=== PATIENT | female | born 1945 | race Caucasian/White ===

== ENCOUNTER 2022-01-09 10:24 | Day surgery (SDC) | payer MEDICARE, OTHER, SELFPAY ==
--- NOTE | 2022-01-08 12:03 | P.CONAN_ITS ---
Documented by User: Ange Martinez NP 01/08/22 12:04 HPI - Anesthesia Eval Consult details Narrative: 76yo F for Colonoscopy COUNT INCLUDES THE [facility] Past Medical History Medical History (Updated 01/08/22 @ 09:52 by Flory Armando, RENE) Adenocarcinoma Anxiety Chronic kidney disease, stage 3 Diabetes mellitus, type II HTN (hypertension) Hypercalcemia Hyperlipidemia Hyperparathyroidism Intraductal papillary mucinous neoplasm of pancreas Splenic artery aneurysm Surgical History Surgical History (Updated 01/08/22 @ 09:52 by Flory Armando RN) History of back surgery History of lobectomy of lung History of resection of large bowel Social History Social History Patient Tobacco Use Status: Former Tobacco user Are you DNR?: No Advance Directives: No Advance Directives Information Provided: Yes Nutrition Risks: No Nutritional Risk Meds Allergies Allergy/AdvReac Type Severity Reaction Status Date / Time morphine Allergy Stomach Verified 01/09/22 10:46 Upset Home Medications Medication Instructions Recorded Confirmed Last Taken Type amlodipine 10 mg tablet 1 tab PO DAILY 01/08/22 01/09/22 History amoxicillin 500 mg capsule 1 cap PO TID 01/08/22 Unknown History buspirone 7.5 mg tablet 1 tab PO BID 01/08/22 Unknown History carvedilol 12.5 mg tablet 1 tab PO BID 01/08/22 01/09/22 History diclofenac sodium 1 % topical gel ea topical 01/08/22 Unknown History diltiazem HCl 240 mg capsule,24 1 cap PO DAILY PRN unknown 01/08/22 Unknown History hr,extended release (Tiadylt ER) empagliflozin 10 mg tablet 1 tab PO DAILY 01/08/22 Unknown History (Jardiance) furosemide 40 mg tablet tab PO 01/08/22 Unknown History glipizide 10 mg tablet 1 tab PO BID 01/08/22 Unknown History hydrocodone 5 mg-acetaminophen 325 1 tab PO Q6H PRN unknown 01/08/22 Unknown History mg tablet insulin aspart U-100 100 unit/mL ea subcut 01/08/22 Unknown History (3 mL) subcutaneous pen (Novolog Flexpen U-100 Insulin aspart) insulin glargine 100 unit/mL (3 ea subcut 01/08/22 Unknown History mL) subcutaneous pen (Basaglar KwikPen U-100 Insulin) linagliptin 5 mg tablet (Tradjenta) 1 tab PO DAILY 01/08/22 Unknown History nitrofurantoin 1 cap PO BID 01/08/22 Unknown History monohydrate/macrocrystals 100 mg capsule phenazopyridine 200 mg tablet 1 tab PO TID 01/08/22 Unknown History rosuvastatin 40 mg tablet 1 tab PO DAILY 01/08/22 Unknown History sertraline 100 mg tablet 1 tab PO DAILY 01/08/22 01/09/22 History telmisartan 80 mg tablet 1 tab PO DAILY 01/08/22 01/09/22 History tizanidine 4 mg tablet 1 tab PO TID 01/08/22 Unknown History tizanidine 4 mg tablet 1 tab PO TID 01/08/22 Unknown History umeclidinium 62.5 mcg/actuation 1 puff inhalation DAILY 01/08/22 Unknown History blister powder for inhalation (Incruse Ellipta) Exam Exam Date and Time: January 08, 2022 1203 Assessment and Plan Assessment Anesthesia Assessment: Chart Reviewed Documented by User: Aroldo Clark MD 01/09/22 11:04 COUNT INCLUDES THE [facility] Past Medical History Medical History (Updated 01/08/22 @ 09:52 by Flory Armando RN) Adenocarcinoma Anxiety Chronic kidney disease, stage 3 Diabetes mellitus, type II HTN (hypertension) Hypercalcemia Hyperlipidemia Hyperparathyroidism Intraductal papillary mucinous neoplasm of pancreas Splenic artery aneurysm Surgical History Surgical History (Updated 01/08/22 @ 09:52 by Flory Armando RN) History of back surgery History of lobectomy of lung History of resection of large bowel Social History Social History Patient Tobacco Use Status: Former Tobacco user Are you DNR?: No Advance Directives: No Advance Directives Information Provided: Yes Nutrition Risks: No Nutritional Risk Meds Allergies Allergy/AdvReac Type Severity Reaction Status Date / Time morphine Allergy Stomach Verified 01/09/22 10:46 Upset Home Medications Medication Instructions Recorded Confirmed Last Taken Type amlodipine 10 mg tablet 1 tab PO DAILY 01/08/22 01/09/22 History amoxicillin 500 mg capsule 1 cap PO TID 01/08/22 Unknown History buspirone 7.5 mg tablet 1 tab PO BID 01/08/22 Unknown History carvedilol 12.5 mg tablet 1 tab PO BID 01/08/22 01/09/22 History diclofenac sodium 1 % topical gel ea topical 01/08/22 Unknown History diltiazem HCl 240 mg capsule,24 1 cap PO DAILY PRN unknown 01/08/22 Unknown History hr,extended release (Tiadylt ER) empagliflozin 10 mg tablet 1 tab PO DAILY 01/08/22 Unknown History (Jardiance) furosemide 40 mg tablet tab PO 01/08/22 Unknown History glipizide 10 mg tablet 1 tab PO BID 01/08/22 Unknown History hydrocodone 5 mg-acetaminophen 325 1 tab PO Q6H PRN unknown 01/08/22 Unknown History mg tablet insulin aspart U-100 100 unit/mL ea subcut 01/08/22 Unknown History (3 mL) subcutaneous pen (Novolog Flexpen U-100 Insulin aspart) insulin glargine 100 unit/mL (3 ea subcut 01/08/22 Unknown History mL) subcutaneous pen (Basaglar KwikPen U-100 Insulin) linagliptin 5 mg tablet (Tradjenta) 1 tab PO DAILY 01/08/22 Unknown History nitrofurantoin 1 cap PO BID 01/08/22 Unknown History monohydrate/macrocrystals 100 mg capsule phenazopyridine 200 mg tablet 1 tab PO TID 01/08/22 Unknown History rosuvastatin 40 mg tablet 1 tab PO DAILY 01/08/22 Unknown History sertraline 100 mg tablet 1 tab PO DAILY 01/08/22 01/09/22 History telmisartan 80 mg tablet 1 tab PO DAILY 01/08/22 01/09/22 History tizanidine 4 mg tablet 1 tab PO TID 01/08/22 Unknown History tizanidine 4 mg tablet 1 tab PO TID 01/08/22 Unknown History umeclidinium 62.5 mcg/actuation 1 puff inhalation DAILY 01/08/22 Unknown History blister powder for inhalation (Incruse Ellipta) Exam Airway Mallampati Class: II TM Dist: >3cm Neck ROM: Full Assessment and Plan Final Anesthetic Review ASA Class: III Final Preanesthetic Review: No Changes in Pt Med Stat, Meds/Allgs Chart Reviewed, Consent Obtained/Reviewed and Anes Risks/Benef Reviewed Patient Risk: Low Procedure Risk: Low Anesthetic Plan Anesthetic Plan: MAC: Disposition: Standard PACU
[2022-01-09 09:06] VITALS: BMI 31.3
[2022-01-09 10:32] VITALS: BP 149/85; PULSE 61; RESP 17; TEMP 36.6; O2SAT 97
[2022-01-09 10:53] LABS: Glucose, Whole Blood 198 mg/dL (60-115)
[2022-01-09] MEDS: Lactated Ringers 1,000 ML 100 ML IVCONT (11:05)
--- NOTE | 2022-01-09 12:19 | MHC.SHP ---
Pre-Procedural Eval Section A Date of Service: 01/09/22 The patient is an INPATIENT: No Changes since office visit: No Cold of Flu in the past 2 weeks, No New Medical Problems, No Changes in Medication and No Patient answered all questions The History & Physical has been completed within 30 days and I have reviewed it.: Yes Section B Chief Complaint: fecal abnormalities Allergies: Allergies Allergy/AdvReac Type Severity Reaction Status Date / Time morphine Allergy Stomach Verified 01/09/22 10:46 Upset Plan I have reviewed the history and physical and performed a pertinent physical examination on my patient. No changes have occurred unless specified.
[2022-01-09 12:46] VITALS: BP 120/49; PULSE 53; RESP 15; TEMP 36.1; O2SAT 99
--- NOTE | 2022-01-09 12:53 | PM.OP ---
Brief Operative Note Date of Service: 01/09/22 Pre-op diagnosis: abnl stool findings Post-op diagnosis: same (colon polyps) Procedure: colonoscopy Surgeon: Carl Badillo Anesthesia: MAC Was an [employer] Consultant used for this Procedure?: No Estimated blood loss (mL): 2 Pathology: other Condition: stable Disposition: PACU
[2022-01-09 13:00] VITALS: BP 145/65; PULSE 55; RESP 16; O2SAT 98
[2022-01-09 13:13] VITALS: BP 147/70; PULSE 55; RESP 16; TEMP 36.1; O2SAT 98
--- NOTE | 2022-01-09 13:23 | OP_ITS ---
SURGEON: Carl Badillo MD INDICATIONS: Abnormal findings in stool. PREOPERATIVE DIAGNOSIS: POSTOPERATIVE DIAGNOSIS: PROCEDURE PERFORMED: Colonoscopy to the terminal ileum with snare polypectomy and biopsy. ESTIMATED BLOOD LOSS: COMPLICATIONS: ANESTHESIA: ASSISTANTS: SPECIMENS: MEDICATIONS: Monitored anesthesia care. DESCRIPTION OF PROCEDURE: History and physical were performed. The risks and benefits of the procedure were explained to the patient. Informed consent was obtained. The patient was placed in left lateral decubitus position. A digital rectal exam was performed and was found to be normal. The Olympus pediatric video colonoscope was introduced into the rectum and advanced to the cecum without difficulty. The cecum was identified by transillumination, palpation, and identification of ileocecal valve. Examination was performed. The scope was removed. She tolerated the procedure well and returned to recovery area in stable condition. FINDINGS: The terminal ileum was examined and appeared normal. The visualized colonic mucosa was normal. There was some stool in the right colon, which was washed and suctioned with limited examination for detection of small polyps slightly. At 75 cm was a less than 5 mm polyp, which was removed with biopsy forceps. The 2nd polyp at 35 cm measuring 6-7 mm was removed with snare and recovered via suction. There was moderate sigmoid diverticulosis and internal hemorrhoids on retroflexed examination. IMPRESSION: Colon polyps. RECOMMENDATION: Follow up the biopsy results. MD CLEMENTE Jade/GUZMANL / [id number]
== END 2022-01-09 13:43 | disposition home or self-care (01) ==
PROVIDERS: PCP Internal Medicine Geriatric Medicine; Visit Provider Internal Medicine Gastroenterology
PROC: 0DJD8ZZ Inspection of Lower Intestinal Tract, Via Natural or Artificial Opening Endoscopic (ICD-10-PCS; CPT 45378; principal; 2022-01-09 11:40)
DX: R19.5 Other fecal abnormalities (principal); Z86.010 Personal history of colon polyps; D12.5 Benign neoplasm of sigmoid colon; K63.5 Polyp of colon; K57.30 Diverticulosis of large intestine without perforation or abscess without bleeding; K64.8 Other hemorrhoids; Z90.49 Acquired absence of other specified parts of digestive tract; E11.22 Type 2 diabetes mellitus with diabetic chronic kidney disease; I12.9 Hypertensive chronic kidney disease with stage 1 through stage 4 chronic kidney disease, or unspecified chronic kidney disease; N18.30 Chronic kidney disease, stage 3 unspecified; J44.9 Chronic obstructive pulmonary disease, unspecified; I72.8 Aneurysm of other specified arteries; D01.7 Carcinoma in situ of other specified digestive organs; R93.2 Abnormal findings on diagnostic imaging of liver and biliary tract; Z85.118 Personal history of other malignant neoplasm of bronchus and lung; Z79.4 Long term (current) use of insulin; Z79.51 Long term (current) use of inhaled steroids; Z79.82 Long term (current) use of aspirin; Z87.891 Personal history of nicotine dependence
CPT/HCPCS: 45385; 45380; 82947; 88305